=== PATIENT | female | born 1975 | race Caucasian/White ===

== ENCOUNTER 2018-02-08 14:53 | Outpatient (CLI) | payer MEDICAID | END 2018-02-08 14:54 | disposition home or self-care (01) | LOC: BICMAMMO 14:53 | PROVIDERS: ATTEND Obstetrics & Gynecology | DX: Z12.31 Encounter for screening mammogram for malignant neoplasm of breast (principal); Z80.3 Family history of malignant neoplasm of breast | CPT/HCPCS: 77067 ==

== ENCOUNTER 2018-04-26 10:25 | Outpatient (CLI) | payer OTHER ==
--- NOTE | 2018-04-26 11:47 | RAD ---
3 VIEWS CERVICAL SPINE: Date: 04/26/18 COMPARISON: None. HISTORY: Neck pain irradiating down both arms, left greater than right. FINDINGS: Three lateral views of the cervical spine were performed in neutral, flexion, and extension. There is mild intervertebral disc space narrowing at C5-6 with small surrounding osteophytes. The vertebral b odies demonstrate normal alignment without subluxation. Alignment is unchanged with flexion and exten maged. No prevertebral soft tissue swelling is seen. IMPRESSION: Mild degenerative changes at C5-6 with unchanged alignment with bending. POS: RAN
== END 2018-04-26 10:26 | disposition home or self-care (01) ==
LOC: TBSIIMAG 10:25
PROVIDERS: ATTEND Neurological Surgery
DX: M54.16 Radiculopathy, lumbar region (principal); M47.892 Other spondylosis, cervical region
CPT/HCPCS: 72040

== ENCOUNTER 2018-05-14 16:45 | Outpatient (CLI) | payer OTHER ==
[2018-05-14 18:14] LABS: Mean Corpuscular HGB CONC 35.1 g/dL (32.0-36.0); Mean Corpuscular Hemoglobin 32.2 pg (27.0-31.0); Mean Corpuscular Volume 91.6 fL (78.0-98.0); Mean Platelet Volume 8.2 fL (7.4-10.4); Platelet Count 300 thou/uL (130-400); RBC Distribution Width 11.7 % (11.5-14.5); Red Blood Cell (RBC) Count 4.37 mill/uL (4.20-5.40)
== END 2018-05-14 16:46 | disposition home or self-care (01) ==
LOC: LABBT 16:45
PROVIDERS: ATTEND Obstetrics & Gynecology
DX: Z01.812 Encounter for preprocedural laboratory examination (principal); N81.6 Rectocele
CPT/HCPCS: 85027; 86850; 86900; 86901

== ENCOUNTER 2018-05-21 08:12 | Day surgery (SDC) | payer OTHER ==
[2018-05-14 17:15] VITALS: BMI 39.1
[2018-05-21] MEDS ORDERED: Gabapentin 300 MG CAP ONE (08:46)
[2018-05-21] MEDS ORDERED: Famotidine/PF 20 mg/2ml Vial ONE ×2 (08:47)
[2018-05-21] MEDS ORDERED: CEFAZOLIN/Water 2 GM/20 ML SYRINGE ONE (08:47)
[2018-05-21] MEDS ORDERED: Lidocaine 0.5%/Epinephrine 1:200,000 50 ml Vial ONE (11:00)
[2018-05-21] MEDS ORDERED: Acetaminophen 325 MG TAB PO PRN (12:39)
[2018-05-21] MEDS ORDERED: Zolpidem Tartrate 5 MG TAB PO PRN (12:39)
[2018-05-21] MEDS ORDERED: Fentanyl 100 MCG/2 ML VIAL ONE ×2 (12:46→12:57)
[2018-05-21] MEDS ORDERED: ALPRAZolam 0.5 MG TAB PO PRN (14:24)
[2018-05-21] MEDS: Sodium Chloride 0.9% 1,000 ML IV SCH ×2 (14:46→22:53)
[2018-05-21] MEDS: traMADol HCl 50 MG TAB PO PRN ×2 (14:49→21:04)
[2018-05-21] MEDS ORDERED: Ondansetron HCl/PF 4 MG/2 ML Vial ONE (15:01)
[2018-05-21] MEDS ORDERED: PROPOFOL 200 MG/20 ML VIAL ONE (15:01)
[2018-05-21] MEDS ORDERED: Dexamethasone 20 MG/5 ML VIAL ONE (15:01)
[2018-05-21] MEDS ORDERED: Lidocaine 1% PF 5 ML VIAL ONE (15:01)
[2018-05-21] MEDS ORDERED: Ketorolac Tromethamine 30 MG/ML VIAL ONE (15:01)
[2018-05-21] MEDS ORDERED: ePHEDrine/0.9% NaCl/PF SYRINGE 50 mg/10 ml ONE (15:01)
[2018-05-21] MEDS: Ketorolac Tromethamine 30 MG/ML VIAL IVP SCH (18:05)
[2018-05-22] MEDS: Ketorolac Tromethamine 30 MG/ML VIAL IVP SCH ×4 (00:48→12:14)
[2018-05-22 05:59] LABS: Hemoglobin 13.6 g/dL (12.0-16.0); Mean Corpuscular HGB CONC 34.8 g/dL (32.0-36.0); Mean Corpuscular Hemoglobin 32.8 pg (27.0-31.0); Mean Platelet Volume 7.9 fL (7.4-10.4); Platelet Count 277 thou/uL (130-400); RBC Distribution Width 11.7 % (11.5-14.5); Red Blood Cell (RBC) Count 4.15 mill/uL (4.20-5.40); White Blood Cell (WBC) Count 13.9 thou/uL (4.8-10.8)
[2018-05-22] MEDS ORDERED: Sodium Chloride 0.9% 10 ML ONE (06:20)
[2018-05-22] MEDS: Sodium Chloride 0.9% 1,000 ML IV SCH ×2 (11:09→12:14)
[2018-05-22] MEDS: traMADol HCl 50 MG TAB PO PRN (12:19)
[2018-05-22 13:18] VITALS: BP 129/78; TEMP 98.3
--- NOTE | 2018-05-23 14:50 | OP ---
PREOPERATIVE DIAGNOSIS: Symptomatic rectocele, previous hysterectomy and anterior repair. POSTOPERATIVE DIAGNOSES: Symptomatic rectocele, previous hysterectomy and anterior repair, no eviden ce of enterocele, minor perineal relaxation. PROCEDURE PERFORMED: Posterior colporrhaphy with perineal repair or perineorrhaphy. SURGEON: Jacob Damon M.D. ETCHED CIRCUIT PROCESSOR: Shauna Anna M.D. ETCHED CIRCUIT PROCESSOR ANESTHESIA: General endotracheal by YARDER ENGINEER, see their notes for details. OPERATIVE FINDINGS: Included a grade 3 rectocele with no vault or enterocele vault prolapse or enter ocele problems and is on minor perineal relaxation. OPERATIVE COMPLICATIONS: None. BLOOD LOSS: Approximately 50 mL. Vag pack and a Sanders catheter was only drains. PROCEDURE IN DETAIL: The patient was taken to the operating room where she had been given intravenou s Ancef x2 grams and underwent general endotracheal anesthesia, was prepped and draped in sterile fas hion utilizing placed in modified lithotomy position. The pathology was identified and the introitus mucosa was grasped with two Allis clamps and 0.5% Xylocaine with epinephrine was used to systematica lly inject the posterior vaginal wall for hemostasis and for postoperative pain relief. The colporrhaphy was begun by making a lito shaped incision in the peritoneum and introitus with a #11 knife blade. The mucosa was then incised with the Metzenbaum scissors cephalad up to the apex o f the vagina grasping the edges of the mucosa with Allis clamps as we went for traction. The paravaginal fascia was dissected off the mucosa. The fascia was then plicated in midline with in terrupted 0 Vicryl sutures and bleeding points were coagulated. The vaginal mucosa was reapproximated with a running locked 0 Vicryl stitch trimming very little muco sa with the Metzenbaum scissors. The perineum was rebuilt up with 0 Vicryl and 2-0 Vicryls pop off sutures and then reapproximated wit h a running 2-0 chromic. The mucosal stitch was tied separately to itself at the introitus as was th e subcuticular chromic stitch for the perineum. The rectum was checked with an over glove and then the vagina was packed with a wet Kerlix. The patient was taken to the recovery room having tolerated the procedure and anesthesia well.
--- NOTE | 2018-05-24 23:33 | DIS ---
DATE OF SURGERY: 05/21/2018 DATE OF DISCHARGE: 05/22/2018 See operative note and history and physical for further details. HOSPITAL COURSE: Basically, this is a 42-year-old multipara who had had a previous hysterect samira and anterior repair elsewhere presented with a rectocele that was symptomatic causing pressure an d discomfort as well as constipation. She also has some perineal relaxation. On 05/21/2018, she underwent a posterior colporrhaphy and perineorrhaphy under general anesthesia. The surgery was uncomplicated. Admitting lab was unremarkable. Postoperative course was unremarkable and by the noon, the following day she was voiding well. Packet was removed. She had minimal spotting and she was voiding without any difficulty. She did not complain of any pain that was not relieved with either ibuprofen or tra madol. IMPRESSION AND FINAL DIAGNOSES: Symptomatic rectocele, status post prior hysterectomy, perineal rela xation, now status post posterior colporrhaphy and perineorrhaphy. Other medical problems are stable with mild anxiety, etc. and chronic back pain, which will need further attention by Dr. Livingston. PLAN: Discharge the patient home with her current home medicines and she will follow up with me in t he office in 2 and 6 weeks. She has appointments.
== END 2018-05-22 13:30 | disposition home or self-care (01) ==
LOC: SDC 08:12 → 3SW 13:40 → UNDOADMIN 13:40 → EDSTATUS 16:30 → UNDODISIN 05-22 13:30 → SDC 05-22 13:30
PROVIDERS: ATTEND Obstetrics & Gynecology
PROC: 0JQC0ZZ Repair Pelvic Region Subcutaneous Tissue and Fascia, Open Approach (ICD-10-PCS; principal; 2018-05-22)
PROC: 0HQ9XZZ Repair Perineum Skin, External Approach (ICD-10-PCS; principal; 2018-05-22)
DX: N81.6 Rectocele (principal); K59.00 Constipation, unspecified; F17.210 Nicotine dependence, cigarettes, uncomplicated; F41.9 Anxiety disorder, unspecified; F32.9 Major depressive disorder, single episode, unspecified; E78.5 Hyperlipidemia, unspecified; G89.29 Other chronic pain; M54.2 Cervicalgia; Z90.710 Acquired absence of both cervix and uterus; Z79.899 Other long term (current) drug therapy; Z98.890 Other specified postprocedural states
CPT/HCPCS: 36415; 85027; 90471; 90732; A4216; G0009; J1100; J1885; J2001; J2405; J2704; J3010; S0028

== ENCOUNTER 2019-01-15 09:30 | Outpatient (CLI) | payer OTHER ==
--- NOTE | 2019-01-15 09:41 | RAD ---
EXAM: Chest PA and lateral: HISTORY: Dyspnea COMPARISON: none FINDINGS: Lung curry are clear. Vascular markings are normal. Heart and mediastinum appear unremarkable. Vascularity is normal. Osseous structures are unremarkable. IMPRESSION: Unremarkable chest
== END 2019-01-15 09:31 | disposition home or self-care (01) ==
LOC: RAD 09:30
PROVIDERS: ATTEND Internal Medicine Critical Care Medicine
DX: R06.00 Dyspnea, unspecified (principal)
CPT/HCPCS: 71046

== ENCOUNTER 2019-03-08 20:30 | Outpatient (CLI) | payer OTHER | END 2019-03-08 20:31 | disposition home or self-care (01) | LOC: SLEEPLAB 20:30 | PROVIDERS: ATTEND Internal Medicine Critical Care Medicine | DX: G47.33 Obstructive sleep apnea (adult) (pediatric) (principal); R06.83 Snoring; E66.9 Obesity, unspecified; Z68.39 Body mass index [BMI] 39.0-39.9, adult; F32.9 Major depressive disorder, single episode, unspecified; M19.90 Unspecified osteoarthritis, unspecified site | CPT/HCPCS: 95810 ==

== ENCOUNTER 2019-03-19 20:30 | Outpatient (CLI) | payer OTHER | END 2019-03-19 20:31 | disposition home or self-care (01) | LOC: SLEEPLAB 20:30 | PROVIDERS: ATTEND Internal Medicine Critical Care Medicine | DX: G47.33 Obstructive sleep apnea (adult) (pediatric) (principal); R06.83 Snoring; G47.10 Hypersomnia, unspecified; E66.9 Obesity, unspecified; Z68.39 Body mass index [BMI] 39.0-39.9, adult | CPT/HCPCS: 95811 ==

== ENCOUNTER 2019-12-06 13:57 | Outpatient (CLI) | payer OTHER ==
--- NOTE | 2019-12-06 15:23 | RAD ---
CERVICAL SPINE FOUR VIEWS: 12/06/19 HISTORY: Radiculopathy of the cervical region. COMPARISON: Cervical spine CT prior day. FINDINGS: There is mild narrowing of the C3-4 as well as C5-6 disc spaces. Circumferential disc osteophyte comp lexes at C3-4 and C5-6. Moderate facet arthrosis on the right at C4-5. 2 mm C4-5 anterolisthesis without significant translation with flexion or extension. IMPRESSION: Degenerative changes without significant translation with flexion or extension. POS: Mir
== END 2019-12-06 13:58 | disposition home or self-care (01) ==
LOC: BICRAD 13:57
PROVIDERS: ATTEND Neurological Surgery
DX: M47.22 Other spondylosis with radiculopathy, cervical region (principal)
CPT/HCPCS: 72050

== ENCOUNTER 2019-12-24 09:14 | Outpatient (CLI) | payer OTHER ==
--- NOTE | 2019-12-24 10:12 | ULT ---
TRANSABDOMINAL AND ENDOVAGINAL PELVIC ULTRASOUND: Date: 12/24/2019 HISTORY: Frequent UTIs, rectocele. FINDINGS: The uterus and ovaries are not visualized. The patient gives a history of partial hysterectomy at age 26. No adnexal mass or free fluid is seen. IMPRESSION: No significant abnormalities are identified. POS: TPC
== END 2019-12-24 09:15 | disposition home or self-care (01) ==
LOC: BICULT 09:14
PROVIDERS: ATTEND Family Medicine
DX: N81.6 Rectocele (principal); Z87.440 Personal history of urinary (tract) infections
CPT/HCPCS: 76856

== ENCOUNTER 2020-01-30 14:14 | Outpatient (CLI) | payer OTHER ==
--- NOTE | 2020-01-30 15:38 | MRI ---
MR CERVICAL SPINE WITHOUT CONTRAST: 01/30/20 INDICATION: History of cervical spondylosis and myelopathy. COMPARISON: None. FINDINGS: The bone marrow signal intensity appears within normal limits. The visualized posterior fossa is unre markable appearing. There is some mucosal thickening within portions of the left lateral sphenoid air cell. Craniocervical junction appears within normal limits. At C2-C3, there is no appreciable central canal or neural foraminal narrowing. There is an asymmetric to the right broad based bulge. At C3-4, there is a right paracentral protrusion causing mild ventral effacement of the spinal cord. There is facet joint degenerative change and uncovertebral hypertrophy. At C4-5, there is facet hypertrophy and uncovertebral hypertrophy inducing mild right neural foramina l narrowing. At C5-6, there is a broad based bulge causing mild to moderate ventral effacement of the spinal cord without definite cord signal abnormality. There is uncovertebral hypertrophy and facet joint degenera tive change inducing moderate to severe right and moderate left neural foraminal narrowing. At C6-7, there is no appreciable central canal or neural foraminal narrowing. At C7-T1, there is no appreciable central canal or neural foraminal narrowing. IMPRESSION: 1. Moderate central canal at C5-6 with mild to moderate ventral effacement of the spinal cord. 2. Moderate to severe right and moderate left neural foraminal narrowing at C5-C6. 3. Mild central canal narrowing and mild right ventral lateral effacement of the spinal cord at C3-4 due to a right paracentral protrusion. 4. Mild right neural foraminal narrowing at C4-5. 5. Attempt was made to call Dr. Livingston who was in surgery at the time of the phone call. The report will be transcribed stat and be available for Dr. Livingston's review. POS: BH
--- NOTE | 2020-01-30 15:49 | RAD ---
EXAM: CERVICAL SPINE 3 views: 01/30/20 HISTORY: Cervical herniated nucleus pulposus with myelopathy, cervical spondylosis. COMPARISON: 12/06/19. FINDINGS: Multilevel disc osteophytosis changes are noted. Mild grade I anterolisthesis of C4 on C5. Disc osteo phytosis with disc space narrowing at C5-6. Stable exam from prior study. IMPRESSION: Stable disc osteophytosis and facet arthrosis as above. POS: RRE
== END 2020-01-30 14:15 | disposition home or self-care (01) ==
LOC: BICMRI 14:14
PROVIDERS: ATTEND Neurological Surgery
DX: M47.12 Other spondylosis with myelopathy, cervical region (principal); M50.00 Cervical disc disorder with myelopathy, unspecified cervical region; M25.78 Osteophyte, vertebrae; M46.92 Unspecified inflammatory spondylopathy, cervical region; M48.02 Spinal stenosis, cervical region
CPT/HCPCS: 72050; 72141

== ENCOUNTER 2020-03-09 07:07 | Outpatient (CLI) | payer OTHER ==
[2020-03-09 12:39] LABS: Hemoglobin 13.6 g/dL (12.0-16.0); Mean Corpuscular HGB CONC 31.8 g/dL (32.0-36.0); Mean Corpuscular Hemoglobin 31.4 pg (27.0-31.0); Mean Corpuscular Volume 98.6 fL (78.0-98.0); Mean Platelet Volume 9.4 fL (7.4-10.4); Platelet Count 232 thou/uL (130-400); RBC Distribution Width 11.4 % (11.5-14.5); Red Blood Cell (RBC) Count 4.35 mill/uL (4.20-5.40); White Blood Cell (WBC) Count 5.7 thou/uL (4.8-10.8)
[2020-03-09 12:47] LABS: INR-International Normal Ratio 0.9; PTT 29.8 SEC (22.9-36.1); Prothrombin Time 12.4 sec (12.0-14.7)
[2020-03-09 12:52] LABS: Anion Gap 13 mmol/L (10-20); BUN (Urea Nitrogen) 9 mg/dL (7.0-18.7); Calc. Creatinine Clearance 0 mL/min (70-130); Calcium 9.6 mg/dL (7.8-10.44); Carbon Dioxide 29 mmol/L (22-29); Chloride 103 mmol/L (98-107); Estimated GFR-MDRD 85; Glucose 89 mg/dL (70-105); Potassium 3.9 mmol/L (3.5-5.1); Sodium 141 mmol/L (136-145)
[2020-03-09 17:39] LABS: SARS-CoV-2 MS2 Positive; SARS-CoV-2 N Gene Negative; SARS-CoV-2 S Gene Negative; SARS-CoV-2 orf1ab Negative
--- NOTE | 2020-03-09 21:13 | EKG ---
Test Reason : Blood Pressure : / mmHG Vent. Rate : 064 BPM Atrial Rate : 064 BPM P-R Int : 114 ms QRS Dur : 084 ms QT Int : 412 ms P-R-T Axes : 072 073 042 degrees QTc Int : 425 ms Normal sinus rhythm Normal ECG No previous ECGs available Confirmed by Hector ABDI ([id number]) on 03/09/2020 9:12:33 PM Referred By: NISHA Confirmed By:Hector ABDI
== END 2020-03-09 07:08 | disposition home or self-care (01) ==
LOC: LABBT 07:07
PROVIDERS: ATTEND Neurological Surgery
DX: Z01.818 Encounter for other preprocedural examination (principal); Z11.59 Encounter for screening for other viral diseases; M48.02 Spinal stenosis, cervical region; M50.022 Cervical disc disorder at C5-C6 level with myelopathy; M50.121 Cervical disc disorder at C4-C5 level with radiculopathy; M47.816 Spondylosis without myelopathy or radiculopathy, lumbar region
CPT/HCPCS: 80048; 85027; 85610; 85730; 87635; 93005; 93010; U0003

== ENCOUNTER 2020-03-09 11:00 | Inpatient (IN) | payer OTHER ==
[2020-03-09 10:30] VITALS: BMI 23.8
[2020-03-11] MEDS ORDERED: Fentanyl 100 MCG/2 ML VIAL ONE ×5 (11:58→18:35)
[2020-03-11] MEDS ORDERED: Midazolam HCl 2 mg/2 ml Vial ONE (12:03)
[2020-03-11] MEDS ORDERED: Thrombin 5000 UNITS/5 ML VIAL ONE (12:17)
[2020-03-11] MEDS ORDERED: HYDROmorphone 0.5 MG/0.5 ML SYRINGE ONE (15:35)
[2020-03-11] MEDS ORDERED: Ondansetron PF 4 MG/2 ML Vial ONE ×2 (15:52→18:40)
[2020-03-11] MEDS ORDERED: Dexamethasone 20 MG/5 ML VIAL ONE (15:52)
[2020-03-11] MEDS ORDERED: PHENYLEPHRINE-NS 100 MCG/ML 10 ML SYRINGE ONE (15:52)
[2020-03-11] MEDS ORDERED: Rocuronium Bromide 10 MG/ML (10ML VIAL) ONE (15:52)
[2020-03-11] MEDS ORDERED: EPHEDRINE 25 MG/5 ML SYRINGE ONE (15:52)
[2020-03-11] MEDS ORDERED: Ketorolac Tromethamine 30 MG/ML VIAL ONE (15:52)
[2020-03-11] MEDS ORDERED: Lidocaine 1% PF 5 ML VIAL ONE (15:52)
[2020-03-11] MEDS ORDERED: Glycopyrrolate 0.2 MG/ML 5 ML SYRINGE ONE (15:52)
[2020-03-11] MEDS ORDERED: PROPOFOL 200 MG/20 ML VIAL ONE (15:52)
[2020-03-11] MEDS ORDERED: Mag-Al 1200 mg/1200 mg/30 ML UDCUP PO PRN (17:05)
[2020-03-11] MEDS ORDERED: traMADol HCl 50 MG TAB PO PRN (17:05)
[2020-03-11] MEDS ORDERED: Morphine 2 MG/ML SYRINGE SLOW IVP PRN (17:05)
[2020-03-11] MEDS ORDERED: Ondansetron PF 4 MG/2 ML Vial IVP PRN (17:05)
[2020-03-11] MEDS ORDERED: diphenhydrAMINE 25 MG CAP PO PRN (17:05)
[2020-03-11] MEDS ORDERED: HYDROcodone/Acetaminophen 7.5/325 mg Tablet PO PRN (17:05)
[2020-03-11] MEDS ORDERED: Promethazine 25 MG TAB PO PRN (17:05)
[2020-03-11] MEDS ORDERED: Milk Of Magnesia 30 ML UDCUP PO PRN (17:05)
[2020-03-11] MEDS ORDERED: Labetalol HCl 100 MG/20 ML VIAL ONE (17:08)
[2020-03-11] MEDS ORDERED: Sodium Chloride 0.9% 10 ML ONE (17:11)
[2020-03-11] MEDS ORDERED: Promethazine HCl 25 MG/ML VIAL ONE ×2 (17:15→17:55)
[2020-03-11] MEDS ORDERED: ALPRAZolam 0.5 MG TAB PO PRN (17:17)
[2020-03-11] MEDS ORDERED: Labetalol HCl 100 MG/20 ML VIAL SLOW IVP SCH (17:30)
[2020-03-11] MEDS ORDERED: Scopolamine 1.5 mg/72 hour Patch TD SCH (18:00)
[2020-03-11] MEDS ORDERED: Proparacaine 0.5% Opth 15 ML BOT L EYE SCH (18:15)
[2020-03-11] MEDS: CEFAZOLIN 2 GM in Premix Bag 1 BAG IVPB SCH (19:42)
[2020-03-11] MEDS: Sodium Chloride 0.9% 1,000 ML IV SCH ×2 (19:43→22:40)
[2020-03-11] MEDS: Acetaminophen/Codeine 30-300mg Tablet PO PRN ×2 (19:48→23:16)
[2020-03-11] MEDS: tiZANidine HCl 4 MG TAB PO PRN (19:48)
[2020-03-11] MEDS ORDERED: CEFAZOLIN 2 GM in Premix Bag 1 BAG IVPB SCH (20:00)
[2020-03-11] MEDS ORDERED: Tobramycin 0.3% Ophth Oint 3.5 GM TUBE EA EYE SCH (21:00)
[2020-03-11] MEDS ORDERED: Ivabradine 5 MG TAB PO SCH (21:00)
--- NOTE | 2020-03-12 00:39 | OP ---
DATE OF PROCEDURE: 03/11/2020 GREENS KEEPER: Jacob Sevilla PA-C. PREOPERATIVE INDICATION: Prevent neurological deterioration. PREOPERATIVE DIAGNOSES: Multilevel cervical intervertebral disk disease with cord compression, myelopathy, and radiculopathy from C3-C6. POSTOPERATIVE DIAGNOSES: Multilevel cervical intervertebral disk disease with cord compression, myelopathy, and radiculopathy from C3-C6. PROCEDURES PERFORMED: Anterior cervical diskectomy, intervertebral arthrodesis, placement of intervertebral biomechanical device, anterior cervical plating C3-C4, C4-C5, C5-C6, local morselized autograft, morselized allograft, operative microscope. PREOPERATIVE MEDICATION: Ancef 2 g IV. DRAIN NUMBER: Zero. DRAIN TYPE: None. DESCRIPTION OF PROCEDURE: The patient was brought to the operating room. General endotracheal anesthesia was induced. The neck was carefully positioned in anatomic alignment and the head supported by a gel-filled donut-shaped headrest. A lateral fluoro radiograph was used to plan our incision. The right side of the neck was sterilely prepped and draped. We opened with a 10 blade knife and we controlled bleeding with bipolar cautery. We dissected sharply to the platysma and we cut this muscle in line with our incision. We continued our dissection medial to the sternocleidomastoid and lateral to the trachea and esophagus. We arrived to the prevertebral space. We placed a marker at C3-C4 and took a lateral fluoro radiograph to confirm the levels upon which we were operating. We then elevated the longus colli muscles off the anterior surface of the vertebral bodies from C3 to C6. A self-retaining retractor was placed underneath the longus colli muscles at C5. The distraction pins were placed at C4 and C6. We distracted across both of the intervening interspaces. We incised the interspace using the 15 blade knife and we removed disk contents using curettes and rongeurs. As we approached the posterior longitudinal ligament, the operative microscope was brought into the field. Under microscopic magnification and using microsurgical techniques, we removed the remainder of the intervertebral disks. We accessed the ventral epidural space with microcurette and using Kerrison rongeurs, we removed posterior osteophytes and posterior longitudinal ligament across the entire interspace at C4-C5 and C5-C6 from one neuroforamen all the way to the other. We controlled the epidural bleeding with small pledget of Gelfoam. We prepared the endplates for grafting once our decompression was secured. Using a bone rasp, we measured the height of each of these interspaces to be 6 mm. Osteophytes removed during our decompression were cleaned of soft tissue attachments, morselized and added into demineralized bone matrix as our fusion substrate. The substrate was packed into the center of two different 6 mm PEEK intervertebral grafts. These grafts were advanced into the respective interspaces under radiographic guidance to appropriate depth. We then removed our distraction pin from C6. We moved our lateral retractors to the C3-C4 interspace and placed our distraction pin at C3. We distracted across the C3-C4 disk. We incised the disk and removed disk contents using curettes and rongeurs. We accessed the ventral epidural space using microcurette and removed posterior osteophytes from one neuroforamen all the way to the other along with posterior longitudinal ligament until the decompression was secured. We prepared the endplates for grafting with curettes and measured the height of the interspace with a bone rasp to 7 mm. A 7 mm PEEK graft was brought into the field. Then, it was loaded with demineralized bone matrix and morselized autograft, and advanced into the interspace under radiographic guidance to appropriate depth. Distraction pins were removed from C3 and C4. A 45 mm anterior plate was brought into the field. We drilled pilot plant supervisor holes through the plate into the vertebral bodies from C3 to C6. We affixed the plate with 14 mm screws. We used fixed angle screws at C6 and variable angle screws at C5, C4 and C3. We engaged the locking mechanism over each of the eight screws. AP and lateral fluoro radiographs confirmed adequate positioning of our instrumentation. We irrigated with bacitracin irrigation. We closed the wound in anatomic layers. We applied a sterile dressing. This was a clean case, no contamination. Job ID: [id number]
[2020-03-12] MEDS: Acetaminophen/Codeine 30-300mg Tablet PO PRN ×2 (03:13→06:25)
[2020-03-12] MEDS: tiZANidine HCl 4 MG TAB PO PRN (03:13)
[2020-03-12] MEDS: CEFAZOLIN 2 GM in Premix Bag 1 BAG IVPB SCH (03:16)
[2020-03-12] MEDS ORDERED: Tamsulosin HCl 0.4 MG CAP PO SCH (06:00)
--- NOTE | 2020-03-12 07:27 | PRG ---
DATE OF SERVICE: 03/12/2020 SUBJECTIVE: Ms. Workman is in the hospital this morning. She did not go home yesterday. She had a corneal abrasion in her left eye and said she was experiencing some more than unusual vomiting and difficulty urinating, so she was kept overnight. OBJECTIVE: VITAL SIGNS: Among the electronic recorded vital signs; temperature has been in the 98s, heart rates 70s to 90s, BP is in the range of 117, 121 and 127. GENERAL: On exam today, she is awake and alert, in no acute distress. She has free active range of motion of all extremities. No focal motor weakness. No reflex asymmetry. Her incision is clean, dry, and intact. PLAN: We will plan to dismiss the patient home today. I have discussed home care precautions. I have provided her with scripts to her pharmacy. She will follow up with us in the clinic in 2 weeks. Job ID: [id number] MTDD
[2020-03-12] MEDS ORDERED: Ferrous Sulfate 325 MG TAB PO SCH (08:00)
[2020-03-12 08:42] VITALS: BP 110/69; TEMP 97.7
[2020-03-12] MEDS ORDERED: Biotin [Biotin] 10,000 MCG PO SCH (09:00)
[2020-03-12] MEDS ORDERED: Multivit, Therapeutic 1 TAB PO SCH (09:00)
[2020-03-12] MEDS ORDERED: Fludrocortisone Acetate 0.1 MG TAB PO SCH (09:00)
[2020-03-12] MEDS ORDERED: Bupropion 150 MG SR TAB PO SCH (09:00)
[2020-03-12] MEDS ORDERED: Calcium Carbonate 600 MG TAB PO SCH (09:00)
--- NOTE | 2020-03-13 11:56 | DIS ---
DATE OF ADMISSION: 03/11/2020 DATE OF DISCHARGE: 03/12/2020 HISTORY OF PRESENT ILLNESS: Ms. Workman is a 44-year-old female 1 day postop ACDF surgery. She did not go home yesterday. She experienced abrasion in her left eye and unusual vomiting and was unable to void yesterday, so she was kept overnight. Following her surgery, she was transitioned to the [facility] floor where her pain was well controlled with p.o. medications. She tolerated a regular diet and she began voiding appropriately. She is otherwise well and ambulating easily in the hallways and she feels like she could go home today. PHYSICAL EXAMINATION: GENERAL: On exam today, she is awake, alert, in no acute distress. EXTREMITIES: She has free active range of all motions of all her extremities. No focal motor weaknesses. No reflex asymmetry. Her incision is clean, dry, and intact. VITAL SIGNS: Recorded vital signs, temperatures have been in the 98s, heart rates between 70 and 90 and the SBP in the range of 120s. PLAN: We plan to dismiss the patient home. CONDITION ON DISCHARGE: The patient had no emergency. Condition was stable for discharge. MEDICATIONS: Home going medications were reviewed. FOLLOWUP: Followup arrangements made by our quality assurance coordinator in the clinic and call to the patient. ACTIVITY: Restrictions were reviewed in person. Wound care showers are acceptable. The patient should pat the incision dry, but not submerge under the surface of the body in water for 2 months. Job ID: [id number]
== END 2020-03-12 09:15 | disposition home or self-care (01) | DRG 472 ==
LOC: SURG A 03-11 10:22
PROVIDERS: ADMIT Neurological Surgery; ATTEND Neurological Surgery
PROC: 0RG20A0 Fusion of 2 or more Cervical Vertebral Joints with Interbody Fusion Device, Anterior Approach, Anterior Column, Open Approach (ICD-10-PCS; principal; 2020-03-11)
PROC: 0RB30ZZ Excision of Cervical Vertebral Disc, Open Approach (ICD-10-PCS; 2020-03-11)
PROC: 0RB50ZZ Excision of Cervicothoracic Vertebral Disc, Open Approach (ICD-10-PCS; 2020-03-11)
DX: M50.121 Cervical disc disorder at C4-C5 level with radiculopathy (principal); M50.022 Cervical disc disorder at C5-C6 level with myelopathy; M43.12 Spondylolisthesis, cervical region; E11.9 Type 2 diabetes mellitus without complications; E78.00 Pure hypercholesterolemia, unspecified; K21.9 Gastro-esophageal reflux disease without esophagitis; F31.9 Bipolar disorder, unspecified; G47.30 Sleep apnea, unspecified; M19.90 Unspecified osteoarthritis, unspecified site; Z90.710 Acquired absence of both cervix and uterus; Z98.51 Tubal ligation status; Z79.899 Other long term (current) drug therapy; Z11.59 Encounter for screening for other viral diseases
CPT/HCPCS: 76000; C1713; C1776; J0690; J1100; J1170; J1885; J2001; J2250; J2405; J2550; J2704; J3010

== ENCOUNTER 2020-05-20 15:10 | Outpatient (CLI) | payer OTHER ==
--- NOTE | 2020-05-20 16:26 | MRI ---
MRI lumbar spine noncontrast HISTORY: Low back pain with bilateral radiculopathy. FINDINGS: The conus medullaris has normal appearance. Vertebral body heights and alignment are mainta ined. There is very mild osteophytosis of the lower facets. Minimal disc bulge at the lumbosacral junction. The central canal and neural foramina are patent. Gallbladder is partially visualized with hypointense material layering in the dependent portion. IMPRESSION : Very mild degenerative changes lower lumbar spine. No focal disc herniation or nerve root compression . Gallbladder sludge suggestive of chronic gallbladder dyskinesis.
--- NOTE | 2020-05-20 16:26 | RAD ---
EXAM: 4 views of the lumbosacral spine HISTORY: Low back pain COMPARISON: None FINDINGS: 4 views of the lumbosacral spine shows normal height and alignment of the vertebral bodies and intervertebral discs without fracture or subluxation. No significant degenerative changes are seen. Alignment is unchanged with flexion and extension. The sacroiliac joints are unremarkable. IMPRESSION: No significant lumbar spine abnormality.
== END 2020-05-20 15:11 | disposition home or self-care (01) ==
LOC: BICMRI 15:10
PROVIDERS: ATTEND Nurse Practitioner Family
DX: M47.26 Other spondylosis with radiculopathy, lumbar region (principal); K82.8 Other specified diseases of gallbladder
CPT/HCPCS: 72110; 72148

== ENCOUNTER 2020-05-21 05:49 | Outpatient (CLI) | payer OTHER ==
[2020-05-21 16:45] LABS: Hemoglobin 13.1 g/dL (12.0-16.0); Mean Corpuscular HGB CONC 32.5 g/dL (32.0-36.0); Mean Corpuscular Hemoglobin 30.3 pg (27.0-31.0); Mean Corpuscular Volume 93.2 fL (78.0-98.0); Mean Platelet Volume 10.5 fL (7.4-10.4); Platelet Count 225 thou/uL (130-400); RBC Distribution Width 12.3 % (11.5-14.5); Red Blood Cell (RBC) Count 4.32 mill/uL (4.20-5.40); White Blood Cell (WBC) Count 4.8 thou/uL (4.8-10.8)
[2020-05-22 12:08] LABS: SARS-CoV-2 MS2 Positive; SARS-CoV-2 N Gene Negative; SARS-CoV-2 S Gene Negative; SARS-CoV-2 by NAA Not Detected (NotDetected); SARS-CoV-2 orf1ab Negative
== END 2020-05-21 05:50 | disposition home or self-care (01) ==
LOC: LABBT 05:49
PROVIDERS: ATTEND Orthopaedic Surgery Hand Surgery
DX: Z01.812 Encounter for preprocedural laboratory examination (principal); Z11.59 Encounter for screening for other viral diseases; D48.7 Neoplasm of uncertain behavior of other specified sites
CPT/HCPCS: 85027; 87635; U0003

== ENCOUNTER 2020-10-02 15:54 | Outpatient (CLI) | payer MEDICARE, OTHER ==
--- NOTE | 2020-10-02 16:18 | RAD ---
EXAM: AP view of the cervical spine with 3 lateral projections of the cervical spine (neutral, flexi on and extension lateral projections) DATE: 10/02/2020 3:58 PM INDICATION: Cervical radicular pain COMPARISON: Prior cervical spinal radiograph dated May 08, 2020 FINDING: The ACDF spanning C3-C6 appears stable. There is no evidence to suggest hardware failure or loosening. The intervertebral disc cages at C3-4, C4-5 and C5-6 appears stable. Spinal alignment on the neutral lateral projection appears normal. There is mild multilevel facet osteoarthritic coker e. With flexion, no abnormal translation is evident. With extension, there is no abnormal translational motion. Lung apices and prevertebral soft tissues appear normal. IMPRESSION:Stable ACDF of the cervical spine spanning C3-C6. No abnormal translational motion.
== END 2020-10-02 15:55 | disposition home or self-care (01) ==
LOC: BICRAD 15:54
PROVIDERS: ATTEND Nurse Practitioner Family
DX: M54.12 Radiculopathy, cervical region (principal); Z98.1 Arthrodesis status
CPT/HCPCS: 72040

== ENCOUNTER 2021-08-10 14:38 | Outpatient (CLI) | payer MEDICARE, OTHER ==
[2021-08-10 15:27] LABS: #Basophils 0.1 10x3/uL (0.0-0.2); #Eosinphils 0.2 10x3/uL (0.0-0.5); #Monocytes 0.6 10x3/uL (0.0-1.1); #Neutrophils 4.9 10x3/uL (1.5-8.4); %Basophils 1.2 % (0.0-2.0); %Lymphocytes 24.6 % (18.0-47.0); %Monocytes 7.6 % (0.0-10.0); %Neutrophils 64.2 % (40.0-75.0); Hemoglobin 12.9 g/dL (12.0-15.5); Mean Corpuscular HGB CONC 31.4 g/dL (32.0-36.0); Mean Corpuscular Hemoglobin 30.2 pg (27.0-33.0); Mean Corpuscular Volume 96.3 fl (81.6-98.3); Mean Platelet Volume 11.3 fl (7.4-10.4); Platelet Count 282 10x3/uL (150-450); Red Blood Cell (RBC) Count 4.27 10x6/uL (3.90-5.03); White Blood Cell (WBC) Count 7.6 10x3/uL (3.5-10.5)
[2021-08-10 15:34] LABS: Bilirubin Neg (Negative); Blood, Urine Negative (Negative); Clarity Clear (Clear); Glucose, Urine (Dipstick) Normal (Negative); Ketone, Urine Negative (Negative); Leukocyte Negative (Negative); Nitrite Negative (Negative); Protein, Urine (Dipstick) Negative (Neg-Trace); Urobilinogen Normal mg/dL (Less than 2)
[2021-08-11 00:09] LABS: SARS-CoV-2 PCR by NAA Not Detected (NotDetected)
== END 2021-08-10 14:39 | disposition home or self-care (01) ==
LOC: LABBT 14:38
PROVIDERS: ATTEND Orthopaedic Surgery Hand Surgery
DX: Z01.812 Encounter for preprocedural laboratory examination (principal); G56.02 Carpal tunnel syndrome, left upper limb; Z20.822 Contact with and (suspected) exposure to COVID-19
CPT/HCPCS: 81003; 85025; U0003; U0005

== ENCOUNTER 2021-08-13 06:26 | Day surgery (SDC) | payer MEDICARE, OTHER ==
[2021-08-11 14:16] VITALS: BMI 20.6
[2021-08-13] MEDS ORDERED: ceFAZolin 2 GM/DEX 5% 100 ML BAG ONE (06:54)
[2021-08-13] MEDS ORDERED: Fentanyl 100 MCG/2 ML VIAL ONE ×2 (08:44→11:38)
[2021-08-13] MEDS ORDERED: Midazolam HCl 2 mg/2 ml Vial ONE (08:44)
[2021-08-13] MEDS ORDERED: Bacitracin Zinc Ointment 30 gm TUBE ONE (08:49)
[2021-08-13] MEDS ORDERED: Betamet Acet/Betamet Na Ph 30 MG/5 ML VIAL ONE ×2 (08:49→08:50)
[2021-08-13] MEDS ORDERED: Bupivacaine PF 0.5% 30 ML VIAL ONE (08:49)
[2021-08-13] MEDS ORDERED: Ondansetron PF 4 MG/2 ML Vial ONE (09:04)
[2021-08-13] MEDS ORDERED: PROPOFOL 200 MG/20 ML VIAL ONE (09:04)
[2021-08-13] MEDS ORDERED: Lidocaine 1% PF 5 ML VIAL ONE (09:04)
[2021-08-13] MEDS ORDERED: Ketorolac Tromethamine 30 MG/ML VIAL ONE (09:04)
[2021-08-13] MEDS ORDERED: Dexamethasone 20 MG/5 ML VIAL ONE (09:04)
[2021-08-13] MEDS ORDERED: HYDROcodone/Acetaminophen 5/325 mg Tablet ONE (12:55)
== END 2021-08-13 13:15 | disposition home or self-care (01) ==
LOC: SDC 06:26
PROVIDERS: ATTEND Orthopaedic Surgery Hand Surgery
PROC: 01N50ZZ Release Median Nerve, Open Approach (ICD-10-PCS; principal; 2021-08-13)
PROC: 01N40ZZ Release Ulnar Nerve, Open Approach (ICD-10-PCS; 2021-08-13)
DX: G56.03 Carpal tunnel syndrome, bilateral upper limbs (principal); G56.23 Lesion of ulnar nerve, bilateral upper limbs; G56.12 Other lesions of median nerve, left upper limb; E11.9 Type 2 diabetes mellitus without complications; E78.00 Pure hypercholesterolemia, unspecified; K21.9 Gastro-esophageal reflux disease without esophagitis; G47.30 Sleep apnea, unspecified; M19.90 Unspecified osteoarthritis, unspecified site; F17.210 Nicotine dependence, cigarettes, uncomplicated; Z79.899 Other long term (current) drug therapy; Z98.84 Bariatric surgery status
CPT/HCPCS: J0702; J1100; J1885; J2250; J2405; J2704; J3010; S0020

== ENCOUNTER 2021-09-17 14:18 | Outpatient (CLI) | payer MEDICARE, OTHER ==
[2021-09-17 16:43] LABS: Hemoglobin 11.5 g/dL (12.0-15.5); Mean Corpuscular HGB CONC 31.5 g/dL (32.0-36.0); Mean Corpuscular Hemoglobin 31.3 pg (27.0-33.0); Mean Corpuscular Volume 99.2 fl (81.6-98.3); Mean Platelet Volume 11.9 fl (7.4-10.4); Platelet Count 245 10x3/uL (150-450); RBC Distribution Width 13.1 % (11.5-14.5); Red Blood Cell (RBC) Count 3.68 10x6/uL (3.90-5.03); White Blood Cell (WBC) Count 7.1 10x3/uL (3.5-10.5)
[2021-09-17 23:24] LABS: SARS-CoV-2 PCR by NAA Not Detected (NotDetected)
== END 2021-09-17 14:19 | disposition home or self-care (01) ==
LOC: LABBT 14:18
PROVIDERS: ATTEND Orthopaedic Surgery Hand Surgery
DX: Z01.812 Encounter for preprocedural laboratory examination (principal); G56.01 Carpal tunnel syndrome, right upper limb; G56.21 Lesion of ulnar nerve, right upper limb; R22.31 Localized swelling, mass and lump, right upper limb; Z20.822 Contact with and (suspected) exposure to COVID-19
CPT/HCPCS: 85027; U0003; U0005

== ENCOUNTER 2021-09-21 09:40 | Day surgery (SDC) | payer MEDICARE, OTHER ==
[2021-09-20 11:13] VITALS: BMI 20.6
[2021-09-21] MEDS ORDERED: Betamet Acet/Betamet Na Ph 30 MG/5 ML VIAL ONE (13:10)
[2021-09-21] MEDS ORDERED: Bupivacaine PF 0.5% 30 ML VIAL ONE (13:10)
[2021-09-21] MEDS ORDERED: Neomycin-Polymyxin 1 ML AMP ONE (13:11)
[2021-09-21] MEDS ORDERED: Bacitracin Zinc Ointment 30 gm TUBE ONE (13:11)
[2021-09-21] MEDS ORDERED: Midazolam HCl 2 mg/2 ml Vial ONE (13:21)
[2021-09-21] MEDS ORDERED: Ketorolac Tromethamine 30 MG/ML VIAL ONE ×2 (13:38→16:41)
[2021-09-21] MEDS ORDERED: Ondansetron PF 4 MG/2 ML Vial ONE (13:38)
[2021-09-21] MEDS ORDERED: Lidocaine 1% PF 5 ML VIAL ONE (13:38)
[2021-09-21] MEDS ORDERED: ePHEDrine 50 MG/ML VIAL ONE (13:38)
[2021-09-21] MEDS ORDERED: PROPOFOL 200 MG/20 ML VIAL ONE (13:38)
[2021-09-21] MEDS ORDERED: PHENYLEPHRINE-NS 100 MCG/ML 10 ML SYRINGE ONE (13:38)
[2021-09-21] MEDS ORDERED: Dexamethasone 20 MG/5 ML VIAL ONE (13:38)
[2021-09-21] MEDS ORDERED: Fentanyl 100 MCG/2 ML VIAL ONE ×3 (15:13→18:25)
[2021-09-21] MEDS ORDERED: HYDROcodone/Acetaminophen 10/325 mg Tablet ONE (18:52)
[2021-09-21] MEDS ORDERED: HYDROcodone/Acetaminophen 5/325 mg Tablet ONE ×2 (18:55→18:56)
== END 2021-09-21 19:11 | disposition home or self-care (01) ==
LOC: SDC 09:40
PROVIDERS: ATTEND Orthopaedic Surgery Hand Surgery
PROC: 0LB70ZZ Excision of Right Hand Tendon, Open Approach (ICD-10-PCS; principal; 2021-09-21)
PROC: 01N40ZZ Release Ulnar Nerve, Open Approach (ICD-10-PCS; 2021-09-21)
DX: G56.21 Lesion of ulnar nerve, right upper limb (principal); M67.843 Other specified disorders of tendon, right hand; G56.01 Carpal tunnel syndrome, right upper limb; M65.841 Other synovitis and tenosynovitis, right hand; F17.210 Nicotine dependence, cigarettes, uncomplicated; E11.9 Type 2 diabetes mellitus without complications; E78.00 Pure hypercholesterolemia, unspecified; K21.9 Gastro-esophageal reflux disease without esophagitis; G47.30 Sleep apnea, unspecified; M19.90 Unspecified osteoarthritis, unspecified site; Z79.899 Other long term (current) drug therapy; Z98.1 Arthrodesis status; Z98.84 Bariatric surgery status; Z98.890 Other specified postprocedural states
CPT/HCPCS: 88304; 88312; J0690; J0702; J1100; J1885; J2250; J2405; J2704; J3010; J3490; S0020

== ENCOUNTER 2022-03-29 15:47 | Outpatient (CLI) | payer MEDICARE, MEDICAID | END 2022-03-29 15:48 | disposition home or self-care (01) | LOC: BICRAD 15:47 | PROVIDERS: ATTEND Specialist | DX: M54.12 Radiculopathy, cervical region (principal) | CPT/HCPCS: 72050 ==

== ENCOUNTER 2023-01-04 13:43 | Outpatient (CLI) | payer MEDICARE, MEDICAID | END 2023-01-04 13:44 | disposition home or self-care (01) | LOC: BICULT 13:43 | PROVIDERS: ATTEND Family Medicine | DX: N39.0 Urinary tract infection, site not specified (principal); N13.30 Unspecified hydronephrosis | CPT/HCPCS: 76770 ==

== ENCOUNTER 2023-10-03 11:09 | Outpatient (CLI) | payer MEDICARE | END 2023-10-03 11:10 | disposition home or self-care (01) | LOC: ULT 11:09 | PROVIDERS: ATTEND Urology | DX: N13.30 Unspecified hydronephrosis (principal) | CPT/HCPCS: 76770 ==